=== PATIENT | male | born 1935 | race Caucasian/White ===

== ENCOUNTER 2016-09-02 16:00 | Inpatient (IN) | payer MEDICARE, OTHER ==
[~2016-09-02] VITALS: Ht 188 cm; Wt 127.0 kg
[2016-09-02 17:10] LABS: HEMOGLOBIN 15.2 gm/dl (14.0-17.5); RED BLOOD COUNT 5.15 M/UL (4.20-5.50); WHITE BLOOD COUNT 5.5 K/UL (4.5-11.0)
[2016-09-02 17:30] LABS: BUN/CREATININE RATIO 15 (0-10)
[2016-09-03 06:40] LABS: HEMOGLOBIN 14.4 gm/dl (14.0-17.5); RED BLOOD COUNT 4.95 M/UL (4.20-5.50)
[2016-09-03 06:41] LABS: WHITE BLOOD COUNT 3.3 K/UL (4.5-11.0)
[2016-09-03 06:53] LABS: BUN/CREATININE RATIO 22 (0-10)
[2016-09-04 06:02] LABS: HEMOGLOBIN 14.8 gm/dl (14.0-17.5); RED BLOOD COUNT 5.06 M/UL (4.20-5.50)
[2016-09-04 06:18] LABS: BUN/CREATININE RATIO 26 (0-10)
[2016-09-04] MEDS ORDERED: FOSINOPRIL SODI10 MG PO (15:07)
[2016-09-04] MEDS ORDERED: HYDROCHLOROTHIA25 MG PO (15:08)
[2016-09-04] MEDS ORDERED: FLOMAX 0.4 MG0.4 MG PO (15:09)
[2016-09-04] MEDS ORDERED: IPRAT-ALBUT 0.5-3 ML NEB (15:11)
[2016-09-04] MEDS ORDERED: WARFARIN SODIUM10 MG PO (15:13)
[2016-09-04] MEDS ORDERED: NOVOLOG 10100 UNITS/ SC (15:40)
[2016-09-04] MEDS ORDERED: SINGULAIR10 MG PO (15:41)
[2016-09-04] MEDS ORDERED: LEVEMIR100 UNIT/1 SC (15:41)
[2016-09-04] MEDS ORDERED: PROTONIX40 MG PO (15:42)
[2016-09-04] MEDS ORDERED: SYMBICORT 16010.2 GM INH (15:43)
[2016-09-04] MEDS ORDERED: LEVAQUIN750 MG PO (15:44)
[2016-09-04] MEDS ORDERED: PREDNISONE 10 M10 MG PO (15:44)
[2016-09-04] MEDS ORDERED: PROSCAR5 MG PO (15:45)
== END 2016-09-04 17:42 | disposition home or self-care (01) | DRG 190 ==
LOC: ER1 16:00 → ZEROF 19:10 → M/S 09-03 08:25
PROVIDERS: Emergency Medicine; ADMIT Internal Medicine
DX: J44.0 Chronic obstructive pulmonary disease with (acute) lower respiratory infection (principal); J18.9 Pneumonia, unspecified organism; E87.0 Hyperosmolality and hypernatremia; E87.3 Alkalosis; J44.1 Chronic obstructive pulmonary disease with (acute) exacerbation; I10 Essential (primary) hypertension; E11.9 Type 2 diabetes mellitus without complications; R00.0 Tachycardia, unspecified; E66.9 Obesity, unspecified; I44.0 Atrioventricular block, first degree; N40.0 Benign prostatic hyperplasia without lower urinary tract symptoms; D69.6 Thrombocytopenia, unspecified; Z68.35 Body mass index [BMI] 35.0-35.9, adult; Z79.01 Long term (current) use of anticoagulants; Z86.711 Personal history of pulmonary embolism; Z88.0 Allergy status to penicillin; Z79.4 Long term (current) use of insulin; Z79.899 Other long term (current) drug therapy
CPT/HCPCS: ECHO; 36415; 36600; 71010; 71020; 76705; 80048; 80053; 81001; 82550; 82553; 82607; 82747; 82803; 82962; 83036; 83605; 83735; 83874; 83880; 84439; 84443; 84484; 85025; 85027; 85610; 85730; 87040; 87086; 93005; 93306; 94640; 94664; 96361; 96372; 96374; 99285; J0456; J0696; J1815; J1956; J2930; J7030; J7040; J7050

== ENCOUNTER → 2022-01-27 | Outpatient (CLI) | payer MEDICARE, OTHER ==
[~2022-01-27] MED LIST: BACITRACIN28.4 GM TP; CLEOCIN HCL150 MG PO; FLOMAX 0.4 MG0.4 MG PO; FOSINOPRIL SODI10 MG PO; HYDROCHLOROTHIA25 MG PO; IPRAT-ALBUT 0.5-3 ML NEB; LEVAQUIN500 MG PO; LEVAQUIN750 MG PO; LEVEMIR100 UNIT/1 SC; NOVOLOG 10100 UNITS/ SC; PREDNISONE 10 M10 MG PO; PROSCAR5 MG PO; PROTONIX40 MG PO; SINGULAIR10 MG PO; SYMBICORT 16010.2 GM INH; WARFARIN SODIUM10 MG PO
== END ==
LOC: EMI 01-24 08:00 → MRI 09:20
DX: M25.552 Pain in left hip (principal); M54.89 Other dorsalgia; M16.12 Unilateral primary osteoarthritis, left hip; N40.0 Benign prostatic hyperplasia without lower urinary tract symptoms; M47.816 Spondylosis without myelopathy or radiculopathy, lumbar region; M51.36 Other intervertebral disc degeneration, lumbar region; M48.061 Spinal stenosis, lumbar region without neurogenic claudication; M51.26 Other intervertebral disc displacement, lumbar region; M47.817 Spondylosis without myelopathy or radiculopathy, lumbosacral region; M51.37 Other intervertebral disc degeneration, lumbosacral region; M48.07 Spinal stenosis, lumbosacral region
CPT/HCPCS: 72148; 73721